=== PATIENT | male | born 1985 | race Caucasian/White ===

== ENCOUNTER 2021-11-17 14:36 | Emergency (ER) | payer MEDICAID ==
[~2021-11-17] VITALS: Ht 165.1 cm; Wt 102.0 kg
[2021-11-17] MEDS ORDERED: ONDANSETRON 4MG ODT PO STA (15:08)
[2021-11-17] MEDS ORDERED: MAGNESIUM/ALUMINUM HYDROXIDE/SIMETHICONE 30ML UDC PO STA (15:08)
[2021-11-17] MEDS ORDERED: SODIUM CHLORIDE 0.9% 1,000 ML IV ONE (15:15)
[2021-11-17 16:03] LABS: HEMATOCRIT. 47.3 % (42.0-52.0); HEMOGLOBIN. 15.6 g/dL (14.0-18.0); MEAN CORPUSCULAR HEMOGLOBIN 27.1 pg (28.0-32.0); MEAN CORPUSCULAR VOLUME 82.1 fL (80.0-94.0); MEAN PLATELET VOLUME 7.6 fl (7.4-10.4); PLATELET 273 x1000/uL (130-400); RED BLOOD CELL COUNT 5.76 mill/uL (4.7-6.1); RED CELL DISTRIBUTION WIDTH 14.6 % (11.6-14.6)
[2021-11-17 16:07] LABS: CHLORIDE 108 mEq/L (98-107)
[2021-11-17 16:55] LABS: PLATELET ESTIMATE NORMAL
[2021-11-17] MEDS ORDERED: ONDA4TAB11 PO (17:27)
[2021-11-17 17:44] VITALS: BP 128/80
== END 2021-11-17 17:47 | disposition home or self-care (01) ==
LOC: ER 14:36
DX: R68.83 Chills (without fever) (principal); R19.7 Diarrhea, unspecified; Z20.822 Contact with and (suspected) exposure to COVID-19
CPT/HCPCS: 36415; 80053; 83690; 85025; 87426; 99283; J7030; Q0162

== ENCOUNTER 2023-03-04 13:34 | Emergency (ER) | payer MEDICAID, OTHER ==
[~2023-03-04] VITALS: Ht 165.1 cm; Wt 118.0 kg
[~2023-03-04 13:34] MED LIST: ONDA4TAB11 PO
[2023-03-04] MEDS ORDERED: ONDANSETRON 4MG ODT PO STA (13:52)
[2023-03-04] MEDS ORDERED: ACETAMINOPHEN 325MG TABLET PO STA (13:52)
[2023-03-04 14:15] LABS: BASOPHILS % 0.4 % (0.0-2.0); EOSINOPHILS % 1.6 % (0.0-5.0); HEMATOCRIT. 45.3 % (42.0-52.0); HEMOGLOBIN. 15.1 g/dL (14.0-18.0); LYMPHOCYTES % 12.8 % (20.0-50.0); MEAN CORPUSCULAR HEMOGLOBIN 28.1 pg (28.0-32.0); MEAN CORPUSCULAR VOLUME 84.5 fL (80.0-94.0); MEAN PLATELET VOLUME 7.7 fl (7.4-10.4); MONOCYTES % 7.7 % (2.0-8.0); NEUTROPHILS % 77.5 % (40.0-76.0); PLATELET 267 x1000/uL (130-400); RED BLOOD CELL COUNT 5.36 mill/uL (4.7-6.1); RED CELL DISTRIBUTION WIDTH 14.1 % (11.6-14.6)
[2023-03-04 14:20] LABS: CHLORIDE 103 mEq/L (98-107)
[2023-03-04 14:28] LABS: ETHANOL BLOOD < 10 mg/dL
[2023-03-04 14:41] LABS: CLARITY URINE CLEAR (CLEAR); COLOR URINE YELLOW (YELLOW); KETONES URINE TRACE (NEGATIVE); LEUKOCYTE ESTERASE URINE NEGATIVE (NEGATIVE); NITRITE URINE NEGATIVE (NEGATIVE); OCCULT BLOOD URINE 2+ (NEGATIVE); PH URINE 6.5 (4.5-8.0); PROTEIN URINE TRACE (NEGATIVE); SPECIFIC GRAVITY URINE 1.017 (1.005-1.030)
[2023-03-04] MEDS ORDERED: METRONIDAZOLE 500 MG PREMIX 100 ML IV ONE (15:00)
[2023-03-04] MEDS ORDERED: CEFTRIAXONE 1GM PREMIX 50 ML IV ONE (15:00)
[2023-03-04] MEDS ORDERED: SODIUM CHLORIDE 0.9% 1,000 ML IV ONE (15:00)
[2023-03-04 15:14] LABS: *AMPHETAMINES SCREEN URINE NEGATIVE (NEGATIVE); *BARBITURATES SCREEN URINE NEGATIVE (NEGATIVE); *BENZODIAZEPINES SCREEN URINE NEGATIVE (NEGATIVE); *COCAINE SCREEN URINE NEGATIVE (NEGATIVE); CANNABINOID URINE SCREEN NEGATIVE (NEGATIVE); METHADONE URINE SCREEN NEGATIVE (NEGATIVE); OPIATES URINE SCREEN NEGATIVE (NEGATIVE); PHENCYCLIDINE URINE SCREEN NEGATIVE (NEGATIVE)
[2023-03-04 23:22] VITALS: BP 118/66
== END 2023-03-05 00:56 | disposition short-term general hospital (02) ==
LOC: ER 13:34 → CANBEDREQ 23:41 → ER 03-05 00:56
DX: K57.92 Diverticulitis of intestine, part unspecified, without perforation or abscess without bleeding (principal)
CPT/HCPCS: 36415; 74176; 80053; 80305; 80320; 81003; 83605; 83690; 85025; 87040; 96365; 96366; 96367; 99285; J0696; J3490; Z7610; G0480

== ENCOUNTER 2023-12-27 15:20 | Emergency (ER) | payer OTHER ==
[~2023-12-27] VITALS: Ht 165.1 cm; Wt 111.0 kg
[2023-12-27 15:35] VITALS: TEMP 98.2; O2SAT 96
[2023-12-27] MEDS: METOCLOPRAMIDE HCL 10MG/2ML VIAL IV ONE (15:45)
[2023-12-27] MEDS: SODIUM CHLORIDE 0.9% 1,000 ML IV ONE (15:45)
[2023-12-27] MEDS: FAMOTIDINE 20MG/2ML VIAL IV ONE (15:45)
[2023-12-27 16:08] LABS: BASOPHILS % 0.6 % (0.0-2.0); EOSINOPHILS % 1.4 % (0.0-5.0); HEMATOCRIT. 43.9 % (42.0-52.0); HEMOGLOBIN. 14.5 g/dL (14.0-18.0); LYMPHOCYTES % 16.1 % (20.0-50.0); MEAN CORPUSCULAR HEMOGLOBIN 28.2 pg (28.0-32.0); MEAN CORPUSCULAR VOLUME 85.4 fL (80.0-94.0); MEAN PLATELET VOLUME 7.4 fl (7.4-10.4); MONOCYTES % 4.8 % (2.0-8.0); NEUTROPHILS % 77.1 % (40.0-76.0); PLATELET 246 x1000/uL (130-400); RED BLOOD CELL COUNT 5.14 mill/uL (4.7-6.1); WHITE BLOOD COUNT 9.5 x1000/uL (4.5-11.0)
[2023-12-27 16:30] LABS: ALANINE AMINOTRANSFERASE 21 IU/L (10-49); ALBUMIN 4.6 g/dL (3.2-4.8); ASPARTATE AMINOTRANSFERASE 18 IU/L (<34); BILIRUBIN TOTAL 0.6 mg/dL (0.1-1.0); CALCIUM 8.8 mg/dL (8.7-10.4); CARBON DIOXIDE 26 mEq/L (21-32); CHLORIDE 106 mEq/L (98-107); CREATININE 0.9 mg/dL (0.6-1.3); GLUCOSE 109 mg/dL (70-105); POTASSIUM 3.7 mEq/L (3.5-5.1); PROTEIN TOTAL 7.9 g/dL (6.0-8.3); SODIUM 139 mEq/L (136-145); UREA NITROGEN BLOOD 17 mg/dL (9-23)
[2023-12-27 16:33] LABS: TROPONIN I HIGH SENSITIVITY < 4 ng/L (3.0-53)
[2023-12-27 17:32] VITALS: BP 110/70; PULSE 80; RESP 15
== END 2023-12-27 17:34 | disposition home or self-care (01) ==
LOC: ER 15:20
DX: R11.2 Nausea with vomiting, unspecified (principal)
CPT/HCPCS: 80053; 83690; 85025; 84484; 36415; 96361; 96374; 96375; 99284; J3490; J7030; Z7610 ×3; J2765

== ENCOUNTER 2024-02-02 19:21 | Emergency (ER) | payer OTHER ==
[~2024-02-02] VITALS: Ht 165.1 cm; Wt 115.0 kg
[2024-02-02 19:39] VITALS: O2SAT 96
[2024-02-02] MEDS ORDERED: MAGNESIUM/ALUMINUM HYDROXIDE/SIMETHICONE 30ML UDC PO ONE (20:00)
[2024-02-02 20:15] LABS: BASOPHILS % 0.6 % (0.0-2.0); EOSINOPHILS % 2.6 % (0.0-5.0); HEMATOCRIT. 46.6 % (42.0-52.0); HEMOGLOBIN. 15.5 g/dL (14.0-18.0); LYMPHOCYTES % 26.8 % (20.0-50.0); MEAN CORPUSCULAR HEMOGLOBIN 28.2 pg (28.0-32.0); MEAN CORPUSCULAR HGB CONC 33.2 g/dL (31.0-37.0); MEAN CORPUSCULAR VOLUME 84.9 fL (80.0-94.0); MEAN PLATELET VOLUME 7.3 fl (7.4-10.4); MONOCYTES % 6.4 % (2.0-8.0); NEUTROPHILS % 63.6 % (40.0-76.0); PLATELET 247 x1000/uL (130-400); RED BLOOD CELL COUNT 5.49 mill/uL (4.7-6.1); WHITE BLOOD COUNT 8.5 x1000/uL (4.5-11.0)
[2024-02-02 20:18] LABS: CLARITY URINE CLEAR (CLEAR); COLOR URINE DARK YELLOW (YELLOW); GLUCOSE URINE NEGATIVE (NEGATIVE); KETONES URINE TRACE (NEGATIVE); LEUKOCYTE ESTERASE URINE NEGATIVE (NEGATIVE); NITRITE URINE NEGATIVE (NEGATIVE); OCCULT BLOOD URINE NEGATIVE (NEGATIVE); PH URINE 5.5 (4.5-8.0); PROTEIN URINE TRACE (NEGATIVE); SPECIFIC GRAVITY URINE 1.033 (1.005-1.030)
[2024-02-02 20:31] LABS: WBC URINE 0-2 /hpf (0-2)
[2024-02-02 20:32] LABS: ALANINE AMINOTRANSFERASE 21 IU/L (10-49); ALBUMIN 4.5 g/dL (3.2-4.8); ASPARTATE AMINOTRANSFERASE 18 IU/L (<34); BILIRUBIN TOTAL 0.6 mg/dL (0.1-1.0); CALCIUM 8.7 mg/dL (8.7-10.4); CARBON DIOXIDE 27 mEq/L (21-32); CHLORIDE 105 mEq/L (98-107); CREATININE 1.1 mg/dL (0.6-1.3); GLUCOSE 81 mg/dL (70-105); PROTEIN TOTAL 7.5 g/dL (6.0-8.3); SODIUM 137 mEq/L (136-145); TROPONIN I HIGH SENSITIVITY < 4 ng/L (3.0-53); UREA NITROGEN BLOOD 15 mg/dL (9-23)
[2024-02-02 20:32] LABS: BACTERIA URINE NONE SEEN; RBC URINE 0-2 /hpf (0-2); SQUAMOUS EPITHELIAL CELL URINE NONE SEEN /lpf (RARE/1+)
[2024-02-02] MEDS ORDERED: FAMO40TA7 MT (20:44)
[2024-02-02] MEDS: FAMOTIDINE 20MG TABLET PO SCH (22:56)
[2024-02-02] MEDS: MAGNESIUM/ALUMINUM HYDROXIDE/SIMETHICONE 30ML UDC PO NR (22:57)
[2024-02-02] MEDS ORDERED: PROT40 MT (23:12)
[2024-02-02 23:25] VITALS: BP 116/69; PULSE 70; RESP 18; TEMP 98.8
== END 2024-02-02 23:28 | disposition home or self-care (01) ==
LOC: ER 19:21
DX: R10.13 Epigastric pain (principal)
CPT/HCPCS: 36415; 80053; 81003; 84484; 85025; 93005; 99284